=== PATIENT | male | born 1960 | race Caucasian/White ===

== ENCOUNTER → 2017-02-28 | Outpatient (CLI) | payer BC ==
[~2017-02-28] MED LIST: ASPIRIN (CHILDR81 MG PO; BRILINTA90 MG PO; COLACE100 MG PO; CORDARONE,PACE200 MG PO; COREG6.25 MG PO; DILAUDID 2MG(HYD2 MG PO; FLOMAX0.4 MG PO; IMDUR30 MG PO; INSPRA25 MG PO; K-TAB ER20 MEQ PO; LASIX40 MG PO; LIPITOR80 MG PO; MOTRIN600 MG PO; NORCO 5-325 TA1 EACH PO; OCUVITE WITH L1 EACH PO; PROTONIX40 MG PO; RANEXA ER500 MG PO; THERAGRAN-M1 TAB PO; TUMS REGULAR ST1 TAB PO; VASOTEC2.5 MG PO; ZOFRAN4 MG PO
[2017-02-28 13:39] LABS: HEMATOCRIT 39.5 % (37.0-53.0); HEMOGLOBIN 12.5 g/dL (12.0-17.0); MCH 30.1 pg (27.0-34.0); MCHC 31.6 gm/dL (32.0-36.5); MCV 95.2 fl (83.0-98.0); MPV 10.5 fl (9.4-12.4); RBC 4.15 M/uL (4.00-6.00); RDW-CV 13.7 % (11.9-14.6)
[2017-02-28 13:42] LABS: PLATELET COUNT 246 K/uL (150-450)
[2017-02-28 13:55] LABS: ALBUMIN 3.6 gm/dL (3.5-5.0); ALK PHOS 120 IU/L (33-138); ALT 55 IU/L (12-78); ANION GAP 8.2 (10.0-19.0); AST 48 IU/L (10-40); BLOOD UREA NITROGEN 14 mg/dL (6-24); CALCIUM 8.2 mg/dL (8.5-10.5); CHLORIDE 104 mMol/L (96-110); CO2 30 mMol/L (22-32); ESTIMATED GFR (MDRD EQUATION) > 60; POTASSIUM 4.2 mMol/L (3.7-5.1); SODIUM 138 mMol/L (135-145); TOTAL BILIRUBIN 0.5 mg/dL (0.0-1.5); TOTAL PROTEIN 6.7 g/dL (6.0-8.4)
[2017-02-28 14:40] LABS: SEGMENTED NEUTROPHIL % 65 %
[2017-02-28 14:41] LABS: ABSOLUTE NEUTROPHIL CT (ANC) 3.3 K/uL (1.4-9.0); BANDED NEUTROPHIL # 0.1 K/uL (0.0-0.1); BANDED NEUTROPHILS % 1 %; LYMPHOCYTE # 1.1 K/uL (0.8-4.0); LYMPHOCYTE % 22 %; MONOCYTE # 0.6 K/uL (0.0-1.0); SEGMENTED NEUTROPHIL # 3.3 K/uL (1.4-9.0)
== END | disposition disaster alternative care site (69) ==
LOC: LNHI 13:36
PROVIDERS: Internal Medicine Cardiovascular Disease
DX: I25.10 Atherosclerotic heart disease of native coronary artery without angina pectoris (principal); I25.5 Ischemic cardiomyopathy

== ENCOUNTER → 2017-08-05 | Outpatient (CLI) | payer BC | LOC: LNHI 15:34 | DX: I50.22 Chronic systolic (congestive) heart failure (principal) ==